=== PATIENT | male | born 1970 | race African-American/Black ===

== ENCOUNTER 2018-07-16 08:52 | Emergency (ER) | payer MEDICAID ==
[~2018-07-16] VITALS: Ht 165.1 cm; Wt 72.7 kg
[2018-07-16 08:55] VITALS: BP 118/76
== END 2018-07-16 09:59 | disposition home or self-care (01) ==
LOC: EMS 08:54
DX: J06.9 Acute upper respiratory infection, unspecified (principal); M79.10 Myalgia, unspecified site; Z87.891 Personal history of nicotine dependence